=== PATIENT | male | born 1975 | race Caucasian/White ===

== ENCOUNTER 2017-09-19 09:24 | Day surgery (SDC) | payer OTHER, SELFPAY ==
[2017-09-17 15:33] VITALS: BMI 31.2
[2017-09-19] VITALS (8 sets, daily range): BP systolic 124–141; BP diastolic 78–88; PULSE 63–99; RESP 13–18; TEMP 36.1–36.9; O2SAT 94–100; BMI 31.2
[2017-09-19] MEDS: LACTATED RINGERS 1,000 ML 42 ML IV (09:50)
--- NOTE | 2017-09-19 10:22 | PM.PREOP ---
Pre-operative Note Interval Note Pre-op Check: History & Physical Reviewed by Physician H&P completed within 30 days and has changed as indicated here:: No changes.
[2017-09-19] MEDS: fentaNYL 100 MCG/2 ML INJ IV (10:32)
[2017-09-19] MEDS: MIDAZOLAM 2 MG/2 ML VIAL IV (10:35)
--- NOTE | 2017-09-19 10:56 | SUR.PREOP ---
Block start time [1035] . Monitoring initiated and maintained throughout procedure. Oxygen and medications given per anesthesiologist instructions. Patient remained stable throughout procedure, no adverse reactions noted. Block end time [1042].
[2017-09-19] MEDS: CEFAZOLIN 2 GM/100 ML FROZ.PIGGY IV (11:15)
--- NOTE | 2017-09-19 12:51 | SUR.OPER ---
regla shafer .. circ relief 12:30 to 1300
[2017-09-19] MEDS: SODIUM CHLORIDE IRRIG SOLUTION 3,000 ML, EPINEPHrine 1 MG IRR ×2 (13:18→13:19)
[2017-09-19] MEDS: BUPIVACAINE 0.25% (PF) 30 ML VIAL INJ (13:20)
--- NOTE | 2017-09-19 15:06 | P.OP_ITS ---
Operative Date/Time/Diagnoses - Date of procedure: 09/19/17 Time of procedure: 12:05 Pre-op diagnosis: Left shoulder superior labrum anterior to posterior tear, rotator cuff tendinopathy, long head biceps tendinopathy, subacromial bursitis, acromioclavicular arthritis. Post-op diagnosis: other (Left shoulder superior labrum anterior to posterior tear, glenohumeral arthritis, rotator cuff tendinopathy, long head biceps tendinopathy, subacromial bursitis, acromioclavicular arthritis.) Procedure & Clinicians Procedure: 1. Left shoulder arthroscopy with labral debridement. 2. Left shoulder arthroscopy with glenoid and humeral head chondroplasty. 3. Left shoulder arthroscopy with limited rotator cuff debridement. 4. Left shoulder arthroscopic subacromial bursectomy. 5. Left shoulder open biceps tenodesis. 5. Left shoulder open distal clavicle excision. Same procedure as scheduled: Yes Indications: This is a 42-year-old [id number] male who developed left shoulder pain approximately 8 months ago after he was doing dips and felt a pop in his left shoulder. He then continue with his workout was doing curling some felt a tearing pain in his shoulder. His pain is primarily anterior that he does have some lateral pain as well. He has continued to have pain despite physical therapy, nonsteroidal anti-inflammatories, activity modification. His primary care obtained a MRI of the left shoulder that showed a superior labrum anterior-posterior tear as well as longitudinal tearing of the long head biceps , supraspinatus and infraspinatus tendinopathy and AC arthrosis. The risks benefits indications expectations of treatment options were discussed with the patient. Risks of surgery to include but not limited to infection, bleeding, damage to neurovascular structures, need for additional surgery, persistent or worsening pain, iatrogenic chondromalacia, iatrogenic fracture, recurrent labral tears, deep vein thrombosis, pulmonary embolism, loss of limb and loss of life were discussed with the patient. All questions were answered, the patient elected proceed with surgery and informed consent was obtained. Surgeon: Jaclyn Holt Senior Reactor Operator: George Altamirano Anesthesia Type: General (Endotracheal tube.), Peripheral nerve block (Left interscalene block.) and Local (10 mL of 0.25 upivacaine without epinephrine.) Operative Notes Findings: Superior labral tear extending anterior and posterior, posteriorly extending to approximately the 3:00 position with extension into the proximal aspect of the biceps tendon.. Significant synovitis throughout the shoulder to include the bicipital sling and adjacent the rotator cuff. Fraying of the anterior edge of the supraspinatus. 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 Significant subacromial bursitis. Acromioclavicular arthritis. Closure Type: primary Specimen(s): none sent Implants & Drains: 6 mm x 15 mm Arthrex biotenodesis screw. Estimated Blood Loss (mL): 10 Blood products transfused: none Tourniquet time (min): 0 Procedure in detail: The patient was met in the preoperative hold area on the morning of surgery were reconfirmed that we had the correct patient, planned to correct procedure and the correct extremity which was the left upper extremity identified. Prior to the patient receiving any medications the operative extremity was initialed by the surgeon. The patient under light sedation had a left interscalene nerve block performed by anesthesia. The patient was then brought back to the operating room in stable condition and placed supine on the operating room table. All bony prominences were well padded and sequential compression devices were placed on the bilateral lower extremities. General anesthesia was induced without complication and an endotracheal tube was placed. The patient was then positioned into the beach chair position ensuring that all bony prominences were made well padded and he remained in anatomic position. The left upper extremity was then prepped and draped in the usual sterile fashion. After final draping an additional ChloraPrep was utilized on the operative site. 3 min were allowed to lapse to enable ChloraPrep to dry. We have surgical time-out we confirmed that we had the correct patient, planned to do the correct procedure, and had the correct extremity identified. I began by insufflating the glenohumeral joint through the planned posterior incision with 30 mL of sterile irrigation fluid. I then incised the skin with a 11 blade and then introduced the trocar with a blunt introducer into the glenohumeral joint. I then inserted my camera and began my examination. Immediately upon entering the joint the superior labrum anterior-posterior tear was visualized. I then used an 18 gauge needle to localize the appropriate place for an anterior portal. I then sharply incised the skin with an 11 blade and introduced a switching stick into the joint. I then dilated over this and placed a 5.5 mm cannula. I began by utilizing biters and a arthroscopic scissor to detach the long head of the biceps at the anchor. I then inserted a probe and continued my examination. I confirmed that the superior labrum anterior-posterior tear. I then continued my examination anteriorly which showed a chondral labral crack over the labrum was appropriately tensioned. I then continued to examine the rotator cuff, noting that the anterior edge of the supraspinatus had some fraying. I answered a sucker shaver and debrided this saúl to enable better visualization of the remainder of the rotator cuff. I then reinserted the probe and continuum examination. The remainder of the cuff was without significant tearing. I then placed a 5.5 mm cannula into the posterior portal and then visualized from anteriorly. Posterior labrum portion of the superior labrum anterior-posterior tear extended to approximately the 3 o 'clock position. Adjacent to this inferior portion of the tear was a grade 4 cartilage lesion of the glenoid. There was also a grade 4 lesion of the humeral head adjacent to this. There was a loose flap of cartilage on the humeral head therefore I inserted a sucker shaver and debrided the cartilage from the humeral head as well as from the glenoid. After debrided the posterior aspect of the labrum. I then went back to viewing from posteriorly and inserted a sucker shaver anteriorly and debrided the stump of the biceps tendon as well as the superior labrum anterior to posterior region of the labrum. I then removed all arthroscopic equipment from the glenohumeral joint. I turned my attention to the subacromial decompression and utilizing the skin incision for the posterior portal, I reinserted the trocar with a blunt introduced at this time into the subacromial space. I then placed my camera in and while visualizing utilized an 18 gauge needle to localize the appropriate place for a lateral incision. I then incised the skin with an 11 blade and then passed a switching stick into the subacromial space. I then dilated over this and placed while the 5.5 mm cannulas. I then alternated between sucker shaver and surface Wand to debride the subacromial space. I inserted a needle at the anterior corner of the acromion to confirm that I had debrided all the way anteriorly. I then inserted a needle into the acromioclavicular joint and confirmed that he had debrided all the way back to the acromioclavicular joint. There is a very small spur off of the inferior aspect of the acromion which I debrided utilizing the sucker shaver and a bur mode. I also debrided the bursa in the subdeltoid region. I then inserted a probe and examined the rotator cuff which was without significant tearing. I then removed all arthroscopic equipment from the subacromial space. I then turned my attention to the open biceps tenodesis. I made an incision in line with the humerus such that approximately 1 cm above the inferior border of the pec and 2 cm were below this. After sharply incising the skin I utilized electrocautery to dissect through the subcuticular layer. Identified the fascia and made a small incision and this. I then bluntly dissected with my finger to the bicipital groove and localized the biceps tendon in the groove. I then utilized my finger to withdraw the biceps tendon. On examination the biceps tendon had synovitis about it as well as thickening of the proximal end. I marked 2 cm proximal to the musculotendinous junction and then utilized a # 2 Fiber loop to whipstitch from the musculotendinous junction to the deejay at 2 cm proximal. I then truncated the remainder of the tendon. I then localized the appropriate place in the bicipital groove under the inferior border of the pec to tenodesed the tendon. I utilized Bovie to clear soft tissue from this region and then placed a guide pin unit cortically through the cortex. I then measured the biceps tendon which was 6 mm in diameter. Therefore utilized a 6 mm drill and drilled unicortically over the guide pin. I then utilized a 6.25 mm tap on the drill hole. I then placed 1 limb of the fiber loop through the 6 x 15 mm bio tenodesis screw and then placed the end of the tendon and the screw into the drill hole. I advanced the screw until it was flush with the cortex. I then pulled on both ends of the fiber loop to confirm that the tendon was firmly seated into the humerus. I then tied both ends of the fiber loop over the button. I then thoroughly irrigated the wound and placed a moist Ray-Cristina into the incision. I then turned my attention to the distal clavicle excision. A saber incision over the acromioclavicular joint. After sharply incising the skin I utilized electrocautery to dissect through the subcuticular layer. I then identified the fascia over the clavicle and incised this in line with the clavicle centered about the acromioclavicular joint. I then utilized electrocautery to subperiosteally elevate the fascia both anteriorly and posteriorly. I then utilized a rongeur to remove the disc from the acromioclavicular joint. I then marked approximately 7 mm from the distal end of the clavicle. I then utilized a sagittal saw I removed the distal 7 mm of the clavicle. I then inserted a rasp and rasped any edges to ensure they were smooth. I then inserted my finger into the acromioclavicular joint and range the shoulder to confirm that there was no impingement. I then thoroughly irrigated this wound. I then re-irrigated all wounds and began closing the incisions. I started with the fascial layer of the distal clavicle excision incision, and closed this with 0 Polysorb in a [id number] fashion. I then closed the subcuticular layer utilizing 2-0 Polysorb in a buried fashion. I then closed the biceps tenodesis incision utilizing 2-0 Polysorb in a buried fashion. Each of the portal incisions was also closed with a single simple buried 2-0 Polysorb. The distal clavicle excision incision and the biceps tenodesis incision skin was closed with a running 3-0 Biosyn in a running buried fashion. Each of the portal incisions skin was closed with 3-0 Biosyn in a simple interrupted buried fashion. Mastisol and Steri-Strips were then placed over each of the incisions. The biceps incision was then injected with 10 mL of 0.25% bupivacaine without epinephrine. The wounds were then dressed with sterile Xeroform plain gauze and ABD. Medipore tape was then placed over this. All sponge counts and needle counts were correct at the conclusion of the case. The patient was woken from anesthesia without complication and taken to the PACU in stable condition. Complications: none Condition: stable Disposition: PACU Plan for aftercare: The patient will be discharged home same day surgery. He will remain in his sling [employer] for the 1st 6 weeks postoperatively. He may come out of his sling for pendulum exercises starting postoperative day 1 as well as for passive elbow range of motion. He is not to do any active biceps for 6 weeks. I will see him back in 10-14 days for wound check at which time we will initiate physical therapy for passive and active assist range of motion of the shoulder.
[2017-09-19] MEDS: OXYCODONE/ACETAMINOPHEN 5/325 TABLET 1 TAB PO ×2 (15:19→15:52)
== END 2017-09-19 15:55 | disposition home or self-care (01) ==
LOC: OR 09:27
PROVIDERS: Visit Provider Orthopaedic Surgery
PROC: (CPT 29805; principal; 2017-09-19 12:15)
PROC: (CPT 23120; 2017-09-19 12:15)
PROC: (CPT 24341; 2017-09-19 12:15)
DX: M25.512 Pain in left shoulder (principal); M19.012 Primary osteoarthritis, left shoulder; S43.432A Superior glenoid labrum lesion of left shoulder, initial encounter; M75.52 Bursitis of left shoulder; I10 Essential (primary) hypertension
CPT/HCPCS: 23430; 29827; 23120; 29807; 64450; J0330; J0690; J1100; J1170; J2250; J2405; J2704; J3010